=== PATIENT | male | born 1995 | race African-American/Black ===

== ENCOUNTER → 2017-09-30 | Outpatient (CLI) | payer OTHER ==
--- NOTE | 2017-09-30 11:56 | DIAGNOSTIC IMAGING REPORT ---
PELVIS WITHOUT CONTRAST (MRI) HISTORY: STRAIN OF RT HIP ABDUCTOR MUSCLE TECHNIQUE: Multiplanar multisequence MRI of the pelvis was performed without the use of intravenous contrast. COMPARISON STUDY: Pelvis MRI 09/21/2014 for comparison. FINDINGS: No acute fracture or dislocation within the pelvis or hips. 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 The marrow edema has significantly improved and has almost completely resolved in the interval. Focal full-thickness tear at the musculotendinous junction of the adductor longus tendon best seen on coronal STIR image 10. This demonstrate up to 3 cm of retraction. There is fluid located at the level of the tear and there is also edema within the proximal muscle belly of the adductor longus. There are small amount of fluid surrounding the anterior aspect of the gracilus muscle. Small bilateral hydroceles. Cartilage spaces within the hips are maintained. No central venous effusions. Trace pelvic fluid. No evidence for hip labral tear. IMPRESSION: 1. Full-thickness tear at the musculotendinous junction of the adductor longus which demonstrates up to 3 m of retraction. 2. Near complete resolution of the osteitis pubis within the medial left pubic bone. Electronically signed by: Dallas Sanches M.D. 09/30/2017 11:55 AM Dictated Date/Time: 09/30/2017 11:16 AM
== END | disposition home or self-care (01) ==
LOC: C.MRIBC 09:42
PROVIDERS: ATTEND Family Medicine
DX: S76.011A Strain of muscle, fascia and tendon of right hip, initial encounter (principal); X58.XXXA Exposure to other specified factors, initial encounter